=== PATIENT | male | born 1975 | race American Indian/Alaskan Native ===

== ENCOUNTER 2020-10-19 11:17 | Emergency (ER) | payer SELFPAY ==
[2020-10-19 11:29] VITALS: BP 126/70
[2020-10-19] MEDS ORDERED: KETOROLAC 60 MG/2 ML INJ IM ONE (12:13)
--- NOTE | 2020-10-19 12:17 | Emergency Department Report ---
ED Back Pain/Injury HPI - General Chief Complaint: Back Pain/Injury Stated Complaint: BACK PAIN Time Seen by Provider: 10/19/20 12:06 Source: patient Limitations: No Limitations - History of Present Illness Initial Comments: 45-year-old male with no significant past history presents to the ER today with complaints of left lower back pain. Patient states that the pain started gr adually 3 days ago. He describes as a tightening pain. He states that is worse when he stands and when he is walking and with certain movements. He states that when he stays still pain eases off. He states that when he moves the pain radiates into his upper back. He states that it did radiate down his legs when the pain first started but he has not done that since. He has not tried any [id number] medications for the pain. He denies any injury. He states that he does do a lot of standing and walking at work. He denies any UTI symptoms, abdominal pain, chest pain, bowel or bladder incontinence, urinary retention or constipation, saddle anesthesia, lower extremity weakness or any other associated symptoms at this time. MD Complaint: back pain -: days(s) (3 days ) - Related Data Previous Rx's Medication Instructions Recorded Last Taken Type Ibuprofen [Motrin] 800 mg PO Q8HR PRN #30 tablet 10/19/20 Unknown Rx Lidocaine [Lidoderm] 1 each TP Q12H #10 adh..patch 10/19/20 Unknown Rx methOCARBAMOL [Robaxin TAB] 750 mg PO Q8H PRN #30 tablet 10/19/20 Unknown Rx ED Review of Systems ROS: Stated complaint: BACK PAIN Other details as noted in HPI Comment: All other systems reviewed and negative Constitutional: denies: chills, fever Eyes: denies: eye pain, eye discharge, vision change Respiratory: denies: cough, shortness of breath, wheezing Cardiovascular: denies: chest pain, palpitations Gastrointestinal: denies: abdominal pain, nausea, vomiting, diarrhea, constipation, hematemesis, hematochezia Genitourinary: denies: urgency, dysuria, frequency, hematuria, discharge, testicular pain, testicular mass Musculoskeletal: back pain Skin: denies: rash, lesions Neurological: denies: headache, weakness, numbness, paresthesias, confusion, abnormal gait Psychiatric: denies: anxiety, depression, auditory hallucinations, visual hallucinations, homicidal thoughts, suicidal thoughts Hematological/Lymphatic: denies: easy bleeding, easy bruising ED Past Medical Hx - Past Medical History Previous Medical History?: No - Surgical History Past Surgical History?: No - Medications Home Medications: Home Medications Medication Instructions Recorded Confirmed Last Taken Type Ibuprofen [Motrin] 800 mg PO Q8HR PRN #30 tablet 10/19/20 Unknown Rx Lidocaine [Lidoderm] 1 each TP Q12H #10 adh..patch 10/19/20 Unknown Rx methOCARBAMOL [Robaxin TAB] 750 mg PO Q8H PRN #30 tablet 10/19/20 Unknown Rx ED Physical Exam - General Limitations: No Limitations General appearance: alert, other (Patient appears uncomfortable secondary to pain) - Head Head exam: Present: atraumatic, normocephalic, normal inspection - Eye Eye exam: Present: normal appearance, PERRL, EOMI Pupils: Present: normal accommodation - Respiratory Respiratory exam: Present: respiratory distress. Absent: normal lung sounds bilaterally - Cardiovascular Cardiovascular Exam: Present: regular rate, normal rhythm, normal heart sounds - GI/Abdominal GI/Abdominal exam: Present: soft. Absent: distended, tenderness, guarding, rebound - Back Exam Back exam: Present: normal inspection, muscle spasm (Moderate spasm noted left lower lumbar paraspinal muscles), paraspinal tenderness (Left lower paraspinal muscle of the lumbar area), other (Range of motion mildly reduced due to pain). Absent: CVA tenderness (R), CVA tenderness (L), vertebral tenderness - Neurological Exam Neurological exam: Present: alert, oriented X3, CN II-XII intact, normal gait. Absent: motor sensory deficit - Psychiatric Psychiatric exam: Present: normal affect, normal mood - Skin Skin exam: Present: intact ED Course Vital Signs 10/19/20 10/19/20 11:27 12:38 Temperature 98.5 F Pulse Rate 64 Respiratory 16 16 Rate Blood Pressure 126/70 [Right] O2 Sat by Pulse 100 Oximetry ED Medical Decision Making - Radiology Data The patient presented with acute back pain. The patient is alert, talkative, interactive and in no distress. The patient is neurologically intact and is ambulatory in the ED. the patient has no fever, no bowel or bladder incontinence, no saddle anesthesia and is otherwise alert and well-appearing. WHis history,and physical examination does not suggest the presence of acute spinal epidural abscess, acute epidural bleed, cauda equina syndrome, abdominal/thoracic aortic aneurysm, aortic dissection or other acute process requiring further testing, treatment or consultation in the emergency department. The vital signs have been stable. The patient condition is stable and appropriate for discharge. The patient will pursue further outpatient evaluation with the primary care physician. Critical care attestation.: If time is entered above; I have spent that time in minutes in the direct care of this critically ill patient, excluding procedure time. ED Disposition Clinical Impression: Lumbar paraspinal muscle spasm Disposition: DC-01 TO HOME OR SELFCARE Is pt being admited?: No Does the pt Need Aspirin: No Condition: Stable Instructions: Muscle Cramps and Spasms, [id number] Additional Instructions: Use the lidocaine patches, take the Motrin and the muscle relaxer as prescribed. You can also do heating pad. Follow-up with the primary care doctor listed on your discharge instructions next week. Return to the ER if your symptoms changes or worsens in any way. Prescriptions: Lidocaine [Lidoderm] 1 each TP Q12H #10 adh..patch Ibuprofen [Motrin] 800 mg PO Q8HR PRN #30 tablet PRN Reason: Pain methOCARBAMOL [Robaxin TAB] 750 mg PO Q8H PRN #30 tablet PRN Reason: Muscle Spasm Referrals: CHARLIE HEARD MD [Staff Physician] - 3-5 Days Forms: Work/School Release Form(ED) Time of Disposition: 12:21
== END 2020-10-19 13:33 | disposition home or self-care (01) ==
LOC: ED 11:17
DX: M62.830 Muscle spasm of back (principal); Z79.899 Other long term (current) drug therapy
CPT/HCPCS: 96372; 99282; J1885

== ENCOUNTER 2020-12-26 05:09 | Emergency (ER) | payer SELFPAY | END 2020-12-26 06:48 | disposition left against medical advice (07) | LOC: ED 05:09 | DX: H57.89 Other specified disorders of eye and adnexa (principal); Z53.21 Procedure and treatment not carried out due to patient leaving prior to being seen by health care provider ==

== ENCOUNTER 2021-01-11 11:31 | Emergency (ER) | payer SELFPAY ==
--- NOTE | 2021-01-11 11:56 | Event Note ---
ED Screening Note ED Screening Note: pmh none psh none rx none mom dec HIV cig works for [employer] no covid immunization This initial assessment/diagnostic orders/clinical plan/treatment(s) is/are subject to change based on patients health status, clinical progression and re- assessment by fellow clinical providers in the ED. Further treatment and workup at subsequent clinical providers discretion. Patient/guardian urged not to elope from the ED as their condition may be serious if not clinically assessed and managed. Initial orders include: ekg xray
--- NOTE | 2021-01-11 12:21 | Emergency Department Report ---
Minor Respiratory - HPI Chief Complaint: Chest Pain Stated Complaint: CHEST PAINS HEADACHE Time Seen by Provider: 01/11/21 11:54 Duration: Today Pain Location: Chest Severity: mild Minor Respiratory: Yes Able to Tolerate Fluids, Yes Cough, Yes Chest Pain (w cough), No Rhinorrhea, No Sore Throat, No Ear Pain, No Sick Contacts, No Hemoptysis, No Shortness of Breath, No Fever Other History: 45 yo comes to ER with cough [place] 2 [place]. cp with cough. no sputum. no fever or chills. ambulatory non ill and nontoxic on exam. ED Review of Systems ROS: Stated complaint: CHEST PAINS HEADACHE Other details as noted in HPI Comment: All other systems reviewed and negative ED Past Medical Hx - Past Medical History Previous Medical History?: No - Surgical History Past Surgical History?: No - Family History Family history: no significant - Social History Smoking Status: Never Smoker Substance Use Type: None - Medications Home Medications: Home Medications Medication Instructions Recorded Confirmed Last Taken Type Ibuprofen [Motrin] 800 mg PO Q8HR PRN #30 tablet 10/19/20 Unknown Rx Lidocaine [Lidoderm] 1 each TP Q12H #10 adh..patch 10/19/20 Unknown Rx methOCARBAMOL [Robaxin TAB] 750 mg PO Q8H PRN #30 tablet 10/19/20 Unknown Rx Minor Respiratory Exam - Exam General: Vital signs noted. No distress. Alert and acting appropriately. HEENT: Yes Moist Mucous Membranes, No Pharyngeal Erythema, No Pharyngeal Exudates, No Rhinorrhea, No Conjuctival Injection, No Frontal Tenderness, No Maxillary Tenderness Ear: Neither TM Bulge, Neither TM Erythema, Neither EAC Pain, Neither EAC Discharge Neck: Yes Supple, No Adenopathy Lungs: Yes Good Air Exchange, No Wheezes, No Ronchi, No Stridor, No Cough, No Labored Respirations, No Retractions, No Use of Accessory Muscles, No Other Abnormal Lung Sounds Heart: Yes Regular, No Murmur Abdomen: Yes Normal Bowel Sounds, No Tenderness, No Peritoneal Signs Skin: No Rash, No Edema Neurologic: Alert and oriented, no deficits. Musculoskeletal: Unremarkable. ED Medical Decision Making - EKG Data EKG shows normal: sinus rhythm Rate: normal - EKG Data When compared to previous EKG there are: no significant change Interpretation: no acute changes - Radiology Data Radiology results: report reviewed, image reviewed nap - Medical Decision Making exam wnl vs normal as taken by RN taking po in nad 12 lead normal chest xray normal on dc reeval he is asking for work note. Dc home with dc instructions and pcp follow up /referral - Differential Diagnosis ro covid/bronchitis/pna Critical care attestation.: If time is entered above; I have spent that time in minutes in the direct care of this critically ill patient, excluding procedure time. ED Disposition Clinical Impression: Cough Disposition: DC-01 TO HOME OR SELFCARE Is pt being admited?: No Does the pt Need Aspirin: No Condition: Stable Instructions: Cough, Adult Additional Instructions: otc symptom relief stay well hydrated follow up with pcp next week for recheck referral below Referrals: CHARLIE HEARD MD [Staff Physician] - 3-5 Days Forms: Work/School Release Form(ED) Time of Disposition: 12:27
--- NOTE | 2021-01-11 12:21 | XRay Report ---
CHEST 2 VIEWS INDICATION: cough. COMPARISON: No FINDINGS: Support devices: None. Heart: Within normal limits. Lungs: No acute air space or interstitial disease. Pleura: No significant pleural effusion. No pneumothorax. Additional findings: None. IMPRESSION: 1. No acute findings. Signer Name: Dallin Bello MD Signed: 01/11/2021 12:16 PM Workstation Name: [id number]
[2021-01-11] MEDS ORDERED: WATER FOR IRRIG STERILE 250 ML BOTTLE IR ONE (12:48)
[2021-01-11] MEDS ORDERED: SODIUM CHLORIDE 0.9% 1000 ML 1,000 ML ONE (12:48)
--- NOTE | 2021-01-11 14:30 | Electrocardiograph Report ---
[facility] Test Date: 2021-01-11 Test Time: 11:45:19 Pat Name: DENY JIMENEZ Department: Room: Gender: M [employer] Representative: IMAN : 1975 Requested By: BEATRIZ PERALES Order Number: [id number] Reading MD: Silvia Barrera Measurements Intervals [place] Rate: 70 P: 64 CO: 162 QRS: 18 QRSD: 101 T: -7 QT: 424 QTc: 457 Interpretive Statements Sinus rhythm No previous ECG available for comparison Electronically Signed On 01-11-2021 14:29:37 EDT by Silvia Barrera
== END 2021-01-11 12:30 | disposition home or self-care (01) ==
LOC: ED 11:31
DX: R05 Cough (principal); Z79.899 Other long term (current) drug therapy
CPT/HCPCS: 71046; 93005; 99283; J7030

== ENCOUNTER 2021-01-11 22:18 | Emergency (ER) | payer SELFPAY ==
[2021-01-11 23:51] VITALS: BP 114/62
[2021-01-12] MEDS ORDERED: predniSONE 20 MG TAB PO ONE (00:48)
[2021-01-12] MEDS ORDERED: KETOROLAC 60 MG/2 ML INJ IM ONE (00:48)
[2021-01-12 02:42] LABS: Bilirubin,Urine NEG (Negative); Blood,Urine NEG (Negative); Color,Urine Yellow (Yellow); Mucus,Urine FEW /HPF; Protein,Urine <15 mg/dL mg/dL (Negative)
[2021-01-12] MEDS ORDERED: AZITHROMYCIN 250 MG TAB PO ONE (02:54)
[2021-01-12] MEDS ORDERED: LIDOCAINE-MPF (1%) 10 MG/1 ML VIAL 5 ML INFILTRATI ONE (02:54)
--- NOTE | 2021-01-12 03:34 | Emergency Department Report ---
ED Back Pain/Injury HPI - General Chief Complaint: Back Pain/Injury Stated Complaint: BACK/NECK PAIN Time Seen by Provider: 01/12/21 00:09 Source: patient Limitations: No Limitations - History of Present Illness Initial Comments: This is a 45-year-old male nontoxic, well nourished in appearance, no acute signs of distress presents to the ED with c/o of lower back pain. Patient stated that the past 2 days he was moving and developed this pain. Patient denies any radiation of pain. 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 Patient denies any neck pain or mid back pain. Patient denies any trauma. Denies any bladder or bowel instability. Patient denies any urinary symptoms. Patient denies any penile discharge. Denies any fever, chills, nausea, vomiting, headache, stiff neck, chest pain or shortness of breath. Patient denies any numbness or tingling. Denies any allergies. Denies significant past medical history. MD Complaint: back pain -: days(s) Similar Symptoms Previously: Yes Place: work Radiation: none Severity: mild Severity scale (0 -10): 3 Quality: aching Consistency: intermittent Improves With: immobilization, sitting upright Worsens With: movement, walking Context: while lifting, turning/twisting Associated Symptoms: denies other symptoms. denies: confusion, weakness, chest pain, numbness, difficulty walking, cough, difficulty urinating, diaphoresis, incontinence, fever/chills, headaches, abdominal pain, loss of appetite, malaise, nausea/vomiting, rash, seizure, shortness of breath, syncope - Related Data Previous Rx's Medication Instructions Recorded Last Taken Type Ibuprofen [Motrin] 800 mg PO Q8HR PRN #30 tablet 10/19/20 Unknown Rx Lidocaine [Lidoderm] 1 each TP Q12H #10 adh..patch 10/19/20 Unknown Rx methOCARBAMOL [Robaxin TAB] 750 mg PO Q8H PRN #30 tablet 10/19/20 Unknown Rx Cyclobenzaprine [Flexeril] 10 mg PO QHS PRN #10 tablet 01/12/21 Unknown Rx Naproxen 500 mg PO Q12H PRN #12 tablet 01/12/21 Unknown Rx Sulfamethoxazole/Trimethoprim 1 each PO BID #20 tablet 01/12/21 Unknown Rx [Bactrim DS TAB] Allergies Allergy/AdvReac Type Severity Reaction Status Date / Time No Known Allergies Allergy Unverified 01/11/21 11:40 ED Review of Systems ROS: Stated complaint: BACK/NECK PAIN Other details as noted in HPI Comment: All other systems reviewed and negative Constitutional: denies: chills, fever Eyes: denies: eye pain, eye discharge, vision change ENT: denies: ear pain, throat pain Respiratory: denies: cough, shortness of breath, wheezing Cardiovascular: denies: chest pain, palpitations Endocrine: no symptoms reported Gastrointestinal: denies: abdominal pain, nausea, diarrhea Genitourinary: denies: urgency, dysuria Musculoskeletal: back pain. denies: joint swelling, arthralgia Skin: denies: rash, lesions Neurological: denies: headache, weakness, paresthesias Psychiatric: denies: anxiety, depression Hematological/Lymphatic: denies: easy bleeding, easy bruising ED Past Medical Hx - Past Medical History Previous Medical History?: No - Surgical History Past Surgical History?: No - Social History Smoking Status: Never Smoker Substance Use Type: None - Medications Home Medications: Home Medications Medication Instructions Recorded Confirmed Last Taken Type Ibuprofen [Motrin] 800 mg PO Q8HR PRN #30 tablet 10/19/20 Unknown Rx Lidocaine [Lidoderm] 1 each TP Q12H #10 adh..patch 10/19/20 Unknown Rx methOCARBAMOL [Robaxin TAB] 750 mg PO Q8H PRN #30 tablet 10/19/20 Unknown Rx Cyclobenzaprine [Flexeril] 10 mg PO QHS PRN #10 tablet 01/12/21 Unknown Rx Naproxen 500 mg PO Q12H PRN #12 tablet 01/12/21 Unknown Rx Sulfamethoxazole/Trimethoprim 1 each PO BID #20 tablet 01/12/21 Unknown Rx [Bactrim DS TAB] ED Physical Exam - General Limitations: No Limitations General appearance: alert, in no apparent distress - Head Head exam: Present: atraumatic, normocephalic - Eye Eye exam: Present: normal appearance - Neck Neck exam: Present: normal inspection, full ROM. Absent: lymphadenopathy - Respiratory Respiratory exam: Absent: respiratory distress - Cardiovascular Cardiovascular Exam: Present: regular rate - GI/Abdominal GI/Abdominal exam: Present: soft, normal bowel sounds. Absent: distended, tenderness, guarding, rebound, rigid, diminished bowel sounds - Extremities Exam Extremities exam: Present: normal inspection, full ROM, normal capillary refill. Absent: tenderness, calf tenderness - Back Exam Back exam: Present: normal inspection, full ROM, paraspinal tenderness (Lumbar paraspinal). Absent: tenderness, CVA tenderness (R), CVA tenderness (L), muscle spasm, vertebral tenderness, rash noted - Expanded Back Exam Expanded Back exam: Absent: saddle anesthesia Back exam: Negative Straight Leg Raising: Left, Right - Neurological Exam Neurological exam: Present: alert, oriented X3, normal gait - Psychiatric Psychiatric exam: Present: normal affect, normal mood - Skin Skin exam: Present: warm, dry, intact, normal color. Absent: rash ED Course Vital Signs 01/11/21 23:48 Temperature 98.7 F Pulse Rate 66 Respiratory 18 Rate Blood Pressure 114/62 O2 Sat by Pulse 99 Oximetry - Reevaluation(s) Reevaluation #1: 01/12/21 03:38 Patient is speaking in full sentences with no signs of distress noted. ED Medical Decision Making - Lab Data Lab Results 01/12/21 Range/Units 02:19 Urine Color Yellow (Yellow) Urine Turbidity Slightly-cloudy (Clear) Urine pH 5.0 (5.0-7.0) Ur Specific [place] 1.026 (1.003-1.030) Urine Protein <15 mg/dl (Negative) mg/dL Urine Glucose (UA) Neg (Negative) mg/dL Urine Ketones Neg (Negative) mg/dL Urine Blood Neg (Negative) Urine Nitrite Neg (Negative) Urine Bilirubin Neg (Negative) Urine Urobilinogen 4.0 (<2.0) mg/dL Ur Leukocyte Esterase Lg (Negative) Urine WBC (Auto) 93.0 H (0.0-6.0) /HPF Urine RBC (Auto) 13.0 (0.0-6.0) /HPF U Epithel Cells (Auto) 2.0 (0-13.0) /HPF Urine Mucus Few /HPF - Medical Decision Making This is a 45-year-old male that presents with UTI and low back strain. Patient is stable was examined by me. There is no spinal tenderness. There is no cauda equina syndrome during examination. No bladder or bowel instability. UA shows large leukocytes and WBCs. Patient was treated apparently with Rocephin and azithromycin. Gonorrhea chlamydia from urine has been sent by damper maker and is pending. Patient was instructed to return in 3 to 5 days for results. Patient received Toradol 60 mg IM and prednisone in the ED which stated that his symptoms has resolved and subsided. Patient is discharged with Bactrim, muscle relaxant and naproxen. Patient was instructed not to operate any machinery while taking muscle relaxant as they cause her drowsiness. Patient was referred to Follow-up with a primary care doctor in 3-5 days or if symptoms worsen and continue return to emergency room as soon as possible. At time of discharge, the patient does not seem toxic or ill in appearance. No acute signs of distress noted. Patient agrees to discharge treatment plan of care. No further questions noted by the patient. This chart is dictated with using [employer] Dictation Program Critical care attestation.: If time is entered above; I have spent that time in minutes in the direct care of this critically ill patient, excluding procedure time. ED Disposition Clinical Impression: Low back strain Qualifiers: Encounter type: initial encounter Qualified Code(s): S39.012A - Strain of muscle, fascia and tendon of lower back, initial encounter UTI (urinary tract infection) Qualifiers: Urinary tract infection type: acute cystitis Hematuria presence: without hematuria Qualified Code(s): N30.00 - Acute cystitis without hematuria Disposition: TO HOME OR SELFCARE Is pt being admited?: No Does the pt Need Aspirin: No Condition: Stable Instructions: Urinary Tract Infection, Adult, Low Back Sprain or Strain Rehab- SportsMed, Cyclobenzaprine tablets Additional Instructions: Follow-up with your primary care doctor in 3-5 days or if symptoms worsen such as bladder or bowel stability, chest pain, short of breath, numbness or tingling sensation in extremities, headache, dizziness, visual changes, nausea vomiting, or abdominal pain, return back to emergency room as was possible. Take naproxen and Flexeril as prescribed. Do not operate heavy machinery while taking Flexeril due to sedation Prescriptions: Cyclobenzaprine [Flexeril] 10 mg PO QHS PRN #10 tablet PRN Reason: Muscle Spasm Sulfamethoxazole/Trimethoprim [Bactrim DS TAB] 1 each PO BID #20 tablet Naproxen 500 mg PO Q12H PRN #12 tablet PRN Reason: Pain , Severe (7-10) Referrals: PRIMARY CARE, [Primary Care Provider] - 3-5 Days CHARLIE HEARD MD [Staff Physician] - 3-5 Days Forms: Work/School Release Form(ED) Time of Disposition: 03:40
== END 2021-01-12 03:50 | disposition home or self-care (01) ==
LOC: ED 22:18
DX: S39.012A Strain of muscle, fascia and tendon of lower back, initial encounter (principal); N39.0 Urinary tract infection, site not specified; Z79.899 Other long term (current) drug therapy; X50.0XXA Overexertion from strenuous movement or load, initial encounter; Y93.89 Activity, other specified; Y92.89 Other specified places as the place of occurrence of the external cause; Y99.0 Civilian activity done for income or pay
CPT/HCPCS: 81001; 87086; 96372; 99283; J0696; J1885; J7512